=== PATIENT | female | born 1980 | race Caucasian/White ===

== ENCOUNTER 2023-06-17 08:35 | Emergency (ER) | payer MEDICAID ==
[~2023-06-17] VITALS: Ht 160 cm; Wt 63.6 kg
[2023-06-17 08:39] VITALS: TEMP 98.3
[2023-06-17 09:03] VITALS: BP 143/60; PULSE 92; RESP 20
[2023-06-17] MEDS ORDERED: SILV20CR11 TP (09:10)
[2023-06-17] MEDS ORDERED: IBUP-1492 PO (09:10)
[2023-06-17] MEDS ORDERED: SILVER SULFADIAZINE 1% 25 GM CREAM TP ONE (09:15)
[2023-06-17] MEDS ORDERED: PERTUSS(ACELL),DIPH,TET VAC/PF 0.5 ML SYRINGE IM. ONE (09:15)
[2023-06-17] MEDS ORDERED: IBUPROFEN 600 MG TABLET PO ONE (09:15)
== END 2023-06-17 09:32 | disposition home or self-care (01) ==
LOC: EMS 08:35
DX: L55.0 Sunburn of first degree (principal); J45.909 Unspecified asthma, uncomplicated
CPT/HCPCS: 16000; 90471; 90715; 99283